=== PATIENT | female | born 1955 | race Caucasian/White ===

== ENCOUNTER → 2017-12-04 | Emergency (ER) | payer OTHER ==
[~2017-12-04] VITALS: Ht 167.6 cm; Wt 98.9 kg
== END | disposition home or self-care (01) ==
LOC: ER 21:57
DX: M54.89 Other dorsalgia (principal)

== ENCOUNTER 2020-07-25 12:16 | Emergency (ER) | payer OTHER ==
[~2020-07-25] VITALS: Ht 167.6 cm; Wt 98.9 kg
== END 2020-07-25 18:20 | disposition home or self-care (01) ==
LOC: ER 12:16
DX: N93.8 Other specified abnormal uterine and vaginal bleeding (principal); Z03.818 Encounter for observation for suspected exposure to other biological agents ruled out

== ENCOUNTER → 2020-07-26 | Emergency (ER) | payer OTHER | END | disposition left against medical advice (07) | LOC: ER 08:04 | DX: Z53.20 Procedure and treatment not carried out because of patient's decision for unspecified reasons (principal) ==

== ENCOUNTER 2021-02-17 12:25 | Emergency (ER) | payer OTHER ==
[~2021-02-17] VITALS: Ht 167.6 cm; Wt 93.4 kg
[2021-02-17] MEDS ORDERED: LEVSIN0.125 MG PO (21:39)
[2021-02-17] MEDS ORDERED: PEPCID AC20 MG PO (21:39)
[2021-02-17] MEDS ORDERED: CIPRO500 MG PO (21:39)
[2021-02-17] MEDS ORDERED: FLAGYL500MG PO (21:39)
[2021-02-17] MEDS ORDERED: ULTRACET PO (21:48)
== END 2021-02-17 22:48 | disposition home or self-care (01) ==
LOC: ER 12:25
DX: K35.890 Other acute appendicitis without perforation or gangrene (principal); C54.1 Malignant neoplasm of endometrium; R10.2 Pelvic and perineal pain; R53.81 Other malaise